=== PATIENT | female | born 1945 | race Caucasian/White ===

== ENCOUNTER → 2020-07-23 | Outpatient (CLI) | payer MEDICARE | END | disposition home or self-care (01) | LOC: CVU 09:56 | PROVIDERS: ATTEND Internal Medicine Cardiovascular Disease | DX: I08.2 Rheumatic disorders of both aortic and tricuspid valves (principal); I10 Essential (primary) hypertension; E78.5 Hyperlipidemia, unspecified | CPT/HCPCS: 93306 ==

== ENCOUNTER → 2020-08-05 | Outpatient (CLI) | payer MEDICARE | END | disposition home or self-care (01) | LOC: RAD 08:55 | PROVIDERS: ATTEND Family Medicine | DX: I82.491 Acute embolism and thrombosis of other specified deep vein of right lower extremity (principal) ==

== ENCOUNTER 2021-03-25 03:31 | Inpatient (IN) | payer MEDICARE ==
[~2021-03-25] VITALS: Ht 160 cm; Wt 71.0 kg
--- NOTE | 2021-03-25 03:57 | NUR ---
pt arrived via ambulance from [place], pt presents to ER for a witnessed tonic clonic siezure at home, pt taken to [facility] and CT was negative so pt was transferred to [facility] for neurology, pt has a history of a storke that left pt with right sided weakness and a right contracted hand, pt is aphasic and responds to yes or no questions with head nods, pt is incontinent, pt on 2 LPM NC, pt given 3 bolus' of NS to help maintain blood pressure, pt given 2G of cefepime and 1250mg of vanco at [facility], pt has a 22G in L hand and 20G in L AC, pt has a history of euthyroid, HTN, and CVA, no history of stroke
--- NOTE | 2021-03-25 04:35 | NUR ---
at bedside for lumbar puncture
[2021-03-25] MEDS ORDERED: ACYCLOVIR 660 MG in SODIUM CHLORIDE 0.9% 100 ML IV ONE (05:00)
[2021-03-25 05:23] LABS: GLUCOSE, CSF 57 mg/dL (40-80); TOTAL PROTEIN,CSF 37 mg/dL (15-45)
[2021-03-25] MEDS ORDERED: LEVETIRACETAM 500 MG in SODIUM CHLORIDE 0.9% 100 ML IV ONE (05:30)
--- NOTE | 2021-03-25 05:36 | NUR ---
pt tolerated lumbar puncture well
[2021-03-25] MEDS ORDERED: ACETAMINOPHEN 325 MG TABLET PO PRN (06:00)
[2021-03-25] MEDS ORDERED: CEFEPIME 2 GM in DEXTROSE 5% 100 ML IV SCH (06:00)
[2021-03-25] MEDS ORDERED: BACLOFEN 10 MG TABLET PO PRN (06:00)
[2021-03-25] MEDS ORDERED: ENOXAPARIN 40 MG/0.4 ML SQ SCH (06:00)
[2021-03-25] MEDS ORDERED: LACTATED RINGERS 1,000 ML IV SCH (06:00)
[2021-03-25] MEDS ORDERED: DOCUSATE 100 MG CAPSULE PO PRN (06:00)
[2021-03-25] MEDS ORDERED: HYDROcodone/APAP 5/325 TABLET PO PRN (06:00)
[2021-03-25] MEDS ORDERED: ONDANSETRON 2MG/ML, 2ML IVPush PRN (06:00)
[2021-03-25] MEDS ORDERED: ENALAPRILAT 1.25 MG/ML, 2ML IVPush PRN (06:00)
[2021-03-25] MEDS ORDERED: morphine SULFATE 10 MG/ML, 1ML IVPush PRN (06:00)
[2021-03-25] MEDS ORDERED: TEMAZEPAM 15 MG CAPSULE PO PRN (06:00)
[2021-03-25] MEDS ORDERED: VANCOMYCIN PER PHARMACY MC PRN (06:00)
[2021-03-25 06:28] VITALS: BP 92/64
[2021-03-25] MEDS ORDERED: PHARMACOKINETIC MONITORING MC PRN (06:30)
[2021-03-25 06:57] LABS: BASOPHILS % (AUTO) 1 % (0-1); EOSINOPHILS % (AUTO) 1 % (1-7); LYMPHOCYTES % (AUTO) 19 % (22-44); MEAN CORPUSCULAR HEMOGLOBIN 32.1 pg (27.0-34.8); MEAN CORPUSCULAR HGB CONC 34.1 g/dL (32.4-35.8); MEAN PLATELET VOLUME 9.6 fL (7.4-10.4); MONOCYTES % (AUTO) 9 % (2-9); NEUTROPHILS % (AUTO) 72 % (42-75); PLATELET COUNT 185 x10^3/uL (130-400)
[2021-03-25 07:00] VITALS: BP 95/66
[2021-03-25 07:06] LABS: ALBUMIN 2.8 g/dL (3.4-5.0); ANION GAP 8 mmol/L (5-15); CALCIUM 8.3 mg/dL (8.5-10.1); CHLORIDE 114 mmol/L (98-107); CREATININE 0.39 mg/dL (0.55-1.02)
[2021-03-25 07:28] VITALS: BP 99/67
[2021-03-25] MEDS ORDERED: VANCOMYCIN 1,600 MG in SODIUM CHLORIDE 0.9% 250 ML IV ONE (08:00)
--- NOTE | 2021-03-25 11:56 | NUR ---
TF recs: Jevity 1.2 at goal of 50 ml/hr Addendum: 03/25/21 at [address] Amended: Links added.
[2021-03-25] MEDS ORDERED: ACYCLOVIR 660 MG in SODIUM CHLORIDE 0.9% 100 ML IV SCH (13:00)
[2021-03-25] MEDS ORDERED: GADOTERATE 7.5 MMOL/15ML SYR ONE (13:18)
[2021-03-25 14:00] VITALS: BP 103/67
[2021-03-25] MEDS ORDERED: OMNIPAQUE 350 MG/ML, 100ML BOTTLE ONE (14:06)
[2021-03-25] MEDS ORDERED: LISI2.5T12 PO (15:52)
[2021-03-25] MEDS ORDERED: APIX5TAB PO (15:52)
[2021-03-25] MEDS ORDERED: THYR15TA PO (15:52)
[2021-03-25] MEDS ORDERED: THYR60TA PO (15:52)
[2021-03-25] MEDS ORDERED: ATOR-2 PO (15:52)
[2021-03-25] MEDS ORDERED: ASPI81TA45 PO (15:52)
[2021-03-25] MEDS ORDERED: MULT-658 PO (15:52)
[2021-03-25] MEDS ORDERED: CALC-112 PO (15:52)
[2021-03-25] MEDS: LEVETIRACETAM 500 MG in SODIUM CHLORIDE 0.9% 100 ML IV SCH (16:35)
[2021-03-25 19:30] VITALS: BP 94/63
[2021-03-25] MEDS ORDERED: ATORVASTATIN 80 MG TABLET PO SCH (21:00)
[2021-03-25] MEDS: APIXABAN 5 MG TABLET PO SCH (21:42)
[2021-03-25 23:56] VITALS: BP 97/66
[2021-03-26] MEDS ORDERED: VANCOMYCIN 1,300 MG in SODIUM CHLORIDE 0.9% 250 ML IV SCH (03:00)
[2021-03-26] MEDS: LEVETIRACETAM 500 MG in SODIUM CHLORIDE 0.9% 100 ML IV SCH (04:40)
[2021-03-26 05:23] LABS: ANION GAP 6 mmol/L (5-15); CALCIUM 8.6 mg/dL (8.5-10.1); CHLORIDE 113 mmol/L (98-107)
[2021-03-26 05:27] LABS: CHOL/HDL RATIO 2.7; CHOLESTEROL, TOTAL 90 mg/dL (140-239); CREATININE 0.38 mg/dL (0.55-1.02); HDL CHOL % 37 % (28-40); HDL CHOLESTEROL (DIRECT) 33 mg/dL (40-60); LDL CHOLESTEROL,CALCULATED 37 mg/dL (54-169); LDL/HDL RATIO 1.1 (0.5-3.0); TRIGLYCERIDES 99 mg/dL (50-200); VLDL CHOLESTEROL 20 mg/dL (0-25)
[2021-03-26] MEDS ORDERED: THYROID 30 MG TABLET PO SCH ×2 (06:00→20:00)
[2021-03-26] MEDS ORDERED: ASPIRIN 81 MG TABLET EC PO SCH (06:00)
[2021-03-26 07:19] VITALS: BP 96/67
[2021-03-26] MEDS ORDERED: POTASSIUM CHLORIDE 20 MEQ PACKET PO SCH (08:00)
[2021-03-26] MEDS: APIXABAN 5 MG TABLET PO SCH (08:39)
[2021-03-26] MEDS ORDERED: LEVE500T53 PO (14:21)
[2021-03-26 16:26] VITALS: BP 114/69
[2021-03-26] MEDS ORDERED: LEVETIRACETAM 500 MG TABLET PO SCH (21:00)
== END 2021-03-27 05:03 | disposition home health service (06) | DRG 101 ==
LOC: ED 05:09 → EDIP 05:28 → 4WST 06:05
PROVIDERS: ADMIT Internal Medicine; ATTEND Family Medicine
PROC: 009U3ZX Drainage of Spinal Canal, Percutaneous Approach, Diagnostic (ICD-10-PCS; principal; 2021-03-25)
DX: R56.9 Unspecified convulsions (principal); E87.2 Acidosis; I50.22 Chronic systolic (congestive) heart failure; I69.351 Hemiplegia and hemiparesis following cerebral infarction affecting right dominant side; D72.829 Elevated white blood cell count, unspecified; E89.0 Postprocedural hypothyroidism; I11.0 Hypertensive heart disease with heart failure; I25.10 Atherosclerotic heart disease of native coronary artery without angina pectoris; R13.10 Dysphagia, unspecified; R53.81 Other malaise; R00.0 Tachycardia, unspecified; S91.102A Unspecified open wound of left great toe without damage to nail, initial encounter; I69.320 Aphasia following cerebral infarction; Z98.51 Tubal ligation status; Z88.2 Allergy status to sulfonamides; Z88.1 Allergy status to other antibiotic agents; Z91.041 Radiographic dye allergy status; Y93.89 Activity, other specified; Y92.89 Other specified places as the place of occurrence of the external cause; Y99.8 Other external cause status
CPT/HCPCS: 36415; 70496; 70498; 70553; 80048; 80061; 80069; 82945; 83735; 84100; 84157; 85025; 87070; 87205; 87252; 89051; 93005; 95819; C8929; G0378; J0133; J1650; J1953; J3370; Q9957; Q9967; A9575; J7050; J7120